=== PATIENT | male | born 1965 | race Caucasian/White ===

== ENCOUNTER 2017-03-08 11:43 | Outpatient (RCR) | payer BC ==
[2017-02-28 14:58] VITALS: BP 112/81
[~2017-03-08 11:43] MED LIST: ASPIRIN 81M81 MG/TA2 PO; ATORVASTATIN CA80 MG PO; BRILINTA90 MG PO; CARVEDILOL3.125 MG
[2017-04-17] MEDS ORDERED: CRESTOR5 MG PO (21:26)
[2017-04-17] MEDS ORDERED: CEPHALEXIN500 M1 PO (21:58)
[2017-04-17] MEDS ORDERED: SEPTRA DS 8001 TAB PO (21:58)
== END 2017-04-30 08:44 | disposition home or self-care (01) ==
LOC: CARDREHAB 11:43
DX: Z48.812 Encounter for surgical aftercare following surgery on the circulatory system (principal); Z95.5 Presence of coronary angioplasty implant and graft; I21.19 ST elevation (STEMI) myocardial infarction involving other coronary artery of inferior wall

== ENCOUNTER 2017-04-17 21:16 | Emergency (ER) | payer BC ==
[~2017-04-17] VITALS: Ht 175.3 cm; Wt 90.0 kg
[2017-04-17] MEDS ORDERED: CRESTOR5 MG PO (21:26)
[2017-04-17] MEDS ORDERED: CEPHALEXIN500 M1 PO (21:58)
[2017-04-17] MEDS ORDERED: SEPTRA DS 8001 TAB PO (21:58)
[2017-04-17 22:04] VITALS: BP 120/84
== END 2017-04-17 22:04 | disposition home or self-care (01) ==
LOC: ED 21:16
DX: L72.3 Sebaceous cyst (principal); I25.10 Atherosclerotic heart disease of native coronary artery without angina pectoris; I10 Essential (primary) hypertension; E78.5 Hyperlipidemia, unspecified; Z95.5 Presence of coronary angioplasty implant and graft

== ENCOUNTER → 2017-06-05 | Outpatient (CLI) | payer BC ==
[~2017-06-05] MED LIST changes: +CEPHALEXIN500 M1 PO; +CRESTOR5 MG PO; +SEPTRA DS 8001 TAB PO
== END ==
LOC: LAB 11:58
DX: J02.9 Acute pharyngitis, unspecified (principal); Z88.5 Allergy status to narcotic agent

== ENCOUNTER → 2020-10-11 | Outpatient (CLI) | payer BC | LOC: CARDREHAB 10:45 | DX: I47.2 Ventricular tachycardia (principal); I25.119 Atherosclerotic heart disease of native coronary artery with unspecified angina pectoris; Z86.79 Personal history of other diseases of the circulatory system | CPT/HCPCS: A9500 ==

== ENCOUNTER → 2024-05-16 | Outpatient (CLI) | payer BC | LOC: RAD 11:58 | DX: R05.3 Chronic cough (principal) ==